=== PATIENT | male | born 1955 | race Caucasian/White ===

== ENCOUNTER → 2018-03-24 10:18 | Outpatient (CLI) | payer MEDICARE, OTHER ==
[~2018-03-24 10:18] MED LIST: ASPIRIN81 MG PO; GLUCOPHAGE1000 MG PO; LEVO-T175 MCG PO; LISINOPRIL10 MG PO; PLAVIX75 MG PO; PRAVACHOL20 MG PO; TOUJEO SOL300 UNIT/1 SC
--- NOTE | 2018-03-27 17:10 | ST ---
PATIENT:YAZMIN ONEILL MEDICAL RECORD: [id number] SEX: M LOCATION:[facility] ORDER #: ADMISSION DATE: 03/24/18 AGE OF PATIENT: 63 REFERRING PHYSICIAN: INTERPRETING PHYSICIAN: SYDNEE PAYAN MD DATE OF SERVICE: 03/24/2018 PROCEDURE: Nuclear stress test. INDICATION: Angina, shortness of breath, and hypertension. The patient was exercised on standard Rambo protocol for 5 minutes, terminated due to achievement of maximum target heart rate response with 33 mCi of sestamibi injected at peak stress and 11 mCi used previously for rest images. FINDINGS: Gated SPECT reveals a preserved ejection fraction of 56% with good wall motion, thickening, and brightening throughout all segments. SPECT imaging Cardiolite was used as myocardial perfusion agent. There are definite reversible changes inferiorly. This includes the basal, mid, apical, and inferior segments. The degree of reversibility is mild. The amount of myocardium involved is moderate. OVERALL IMPRESSION: 1. This is an abnormal nuclear stress test with reversible changes inferiorly. 2. Gated SPECT reveals preserved ejection fraction 56%. In this patient with ongoing symptomatology, the current scan does suggest presence of hemodynamically significant coronary artery disease. We will proceed with coronary angiography as followup study. TRANSINT:[id number] Voice Confirmation ID: [id number] DOCUMENT ID: [id number] SYDNEE PAYAN MD at 1710 CC: [id number] DICTATION DATE: 03/25/18 1158 FOOT MITER OPERATOR: 03/26/18 0148 DEP CLI 03/24/18 [place] [id number]
[2018-04-04 09:27] VITALS: BMI 44.6
== END | disposition home or self-care (01) ==
LOC: D.HCCARDIO 10:18
DX: R06.09 Other forms of dyspnea (principal)

== ENCOUNTER 2018-04-02 08:36 | Outpatient (CLI) | payer MEDICARE, OTHER ==
[~2018-04-02] VITALS: Ht 182.9 cm; Wt 149.1 kg
--- NOTE | ~2018-04-02 | HEMODYNAMI ---
PATIENT:YAZMIN ONEILL MEDICAL RECORD: [id number] : 51 LOCATION:[facility] ADMISSION DATE: 04/02/18 Generatedon:04/02/201810:57 Patient name: YAZMIN ONEILL Patient #: [id number] SSN: : Date of study: 04/02/2018 Page: Of Hemodynamic Procedure Report Patient Data Patient Demographics Procedure consent was obtained First Name: YAZMIN Gender: Male Last Name: NINO : 1955 Middle Initial: WADE Age: 63 year(s) Patient #: [id number] Race: Unknown Additional ID: [id number] Contact details [address]: [address] [place] [address] State: [place] City: [place] Zip code: [address] Past Medical History Allergies Allergen Reaction Date Comments Reported Other 04/02/2018 PCN, allergy gemfibrozil,meperidine. Admission Admission Data Admission Date: 04/02/2018 Admission Time: 8:36 Admit Source: Other Height (in.): 72 BSA: 2.62 (m2) Height (cm.): 182.88 BMI: 44.21 (kg/m2) Weight (lbs.): 326 Weight (kg.): 147.87 Lab Results Lab Result Date: 04/02/2018 Lab Result Time: 9:00 Biochemistry Name Units Result Min Max BUN mg/dl 14 --(--*-)-- 7 18 Creatinine mg/dl 1.1 --(--*-)-- 0.6 1.3 CBC Name Units Result Min Max Hematocrit % 45.7 --(-*--)-- 42 54 Hemoglobin g/dl 15.7 --(--*-)-- 13.5 17.5 Procedure Procedure Types Cath Procedure Diagnostic Procedure C [facility] w/Coronaries Sedation Charges Moderate Sedation up to 15 minutes PCI Procedure Coronary Stent Coronary Stent Initial Procedure Description Procedure Date Procedure Date: 04/02/2018 Procedure Start Time: 10:41 Procedure End Time: 10:55 Procedure Staff Name Function Jose Ramon Mcgovern MD Performing Physician Apple Johnson RT Monitor Jt Hawthorne RN Nurse Erik Casas RT Scrub Procedure Data Cath Procedure Fluoroscopy Diagnostic fluoroscopy Total fluoroscopy Time: 3.1 time: 3.1 min min Diagnostic fluoroscopy Total fluoroscopy dose: 751 dose: 751 mGy mGy Contrast Material Contrast Material Type Amount (ml) Isovue 300 75 Entry Location Entry Primary Successful Side Size Upsize Upsize Entry Closure Holley ccessful Closure Location (Fr) 1 (Fr) 2 (Fr) Remarks Device Remarks Radial Right 6 Fr Mechanical Z band artery Short Compression Estimated blood loss: 10 ml Diagnostic catheters Device Type Used For End Catheter Placement DIAGNOSTIC Compton 110cm 5 Procedure Fr catheter ([id number]) Procedure Complications No complications Procedure Medications Medication Administration Route Dosage 0.9% NaCl I.V. 100 ml/hr Oxygen etCO2 Nasal cannula 2 l/min Heparin Flush Bag added to field 2 bags (1000units/500ml NS) Lidocaine 2% added to field 20 Radial Cocktail added to field 1 syringe (Verapomil 2mg/Nitro 400mcg/Heparin 1500units) Versed I.V. 2 mg Fentanyl I.V. 100 mcg Versed I.V. 1 mg Heparin Bolus I.V. 4000 units Hemodynamics Rest BSA: 2.62 (m2) O2 Consumption: Estimated: 356.32 (ml/min) O2 Consumption indexed : Estimated:136 (ml/min/m) Pre Cath Intra NCS Post Cath Vital Signs Time Heart Resp SPO2 etCO2 NIBP (mmHg) Rhythm Pain Sedation Rate (ipm) (%) (mmHg) Status Level (bpm) 10:25:02 89 18 99 37.7 145/92(121) NSR 0 (11) 10(A) , No pain 10:29:22 93 18 96 39.2 153/84(132) NSR 0 (11) 10(A) , No pain 10:33:44 83 14 98 42.3 145/84(109) NSR 0 (11) 10(A) , No pain 10:38:08 94 18 98 38.5 145/87(120) NSR 0 (11) 10(A) , No pain 10:42:32 96 12 98 37.7 144/87(114) NSR 0 (11) 10(A) , No pain 10:46:45 96 15 94 39.2 129/76(96) NSR 0 (11) 10(A) , No pain 10:51:02 100 18 96 39.2 135/76(100) NSR 0 (11) 10(A) , No pain 10:55:14 95 15 97 37.7 133/78(107) NSR 0 (11) 10(A) , No pain Medications Time Medication Route Dose Verified Delivered Reason Not es Effectiveness by by 10:22:46 0.9% NaCl I.V. 100 Jt Jt Per physician ml/hr Christoph Hawthorne RN RN 10:22:58 Oxygen etCO2 2 l/min Jt Jt for low 02 sats Nasal Christoph Hawthorne cannula RN RN 10:23:07 Heparin Flush added 2 bags Jt Jt used for Bag to Christoph Hawthorne procedure (1000units/500ml field RN RN NS) 10:23:23 Lidocaine 2% added 20ml Jt Jt for local to vial Christoph Hawthorne anesthetic RN RN 10:23:35 Radial Cocktail added 1 Jt Jt used for (Verapomil to syringe Christoph Hawthorne procedure 2mg/Nitro field RN RN 400mcg/Heparin 1500units) 10:38:04 Versed I.V. 2 mg Jt Jt for sedation Christoph Hawthorne RN RN 10:38:12 Fentanyl I.V. 100 mcg Jt Jt for sedation Christoph Hawthorne RN RN 10:41:22 Versed I.V. 1 mg Jt Jt for sedation Christoph Hawthorne RN RN 10:46:57 Heparin Bolus I.V. 4000 Jt Jt for units Christoph Hawthorne anticoagulation RN horse trekking guide Log Time Note 10:06:35 Patient Height : 72 inches 10:06:42 Patient Weight : 326 lbs 10:08:03 Admit Source: Other 10:08:07 Diagnostic Cath status Elective 10:08:09 Time tracking: Regular hours (M-F 7:00 - 5:00) 10:08:13 Plan of Care:Hemodynamics will remain stable., Cardiac rhythm will remain stable., Comfort level will be maintained., Respiratory function will remain adequate., Patient/ family verbilizes understanding of procedure., Procedure tolerated without complication., Recovers from procedure without complications.. 10:08:22 H&P Date Dictated: 03/19/2018 Within 30 days and on chart., H&P Addendum completed by physician on day of procedure. (MUST COMPLETE FOR ALL OUTPATIENTS). 10:10:15 Jt Hawthorne RN sent for patient. Start room use. 10:15:04 Lab Result : BUN 14 mg/dl 10:15:04 Lab Result : Creatinine 1.1 mg/dl 10:15:04 Lab Result : Hematocrit 45.7 % 10:15:04 Lab Result : Hemoglobin 15.7 g/dl 10:15:06 Lab results completed and on chart. 10:15:15 Patient received from Pre/Post Procedure Room to CCL 2 Alert and oriented. Tansferred to table in Supine position. 10:15:16 Warm blankets applied, and coral hugger turned on for patient comfort. 10:15:17 Correct patient and procedure confirmed by team. 10:15:19 Signed procedure consent form obtained from patient. 10:15:20 ECG and BP/O2 sat monitors applied to patient. 10:15:20 Pre-procedure instructions explained to patient. 10:15:21 Pre-op teaching completed and patient verbalized understanding. 10:15:23 Family in waiting room. 10:15:24 Patient NPO since Midnight. 10:15:42 Patient allergic to Other allergyPCN, gemfibrozil,meperidine. 10:15:43 Is the patient allergic to Iodine/contrast media? No. 10:15:44 Is patient on blood thinner?Yes 10:15:46 ACC The patient was administered the following blood thiners within the last 24 hours: ACCPlavix 10:15:47 Patient diabetic? Yes. 10:15:48 If diabetic: On Metformin? Yes 10:15:51 If on Metformin: Last Dose? 03/31/2018 10:15:54 Previous problem with sedation/anesthesia? No ? 10:15:54 Snore? Yes 10:15:55 Sleep apnea? Yes 10:15:56 Deviated septum? No 10:15:56 Opens mouth fully? Yes 10:15:57 Sticks out tongue? Yes 10:15:59 Airway obstruction? No ? 10:16:00 Dentures? No ? 10:22:46 0.9% NaCl 100 ml/hr I.V. was administered by Jt Lorigan RN; Per physician; 10::58 Oxygen 2 l/min etCO2 Nasal cannula was administered by Jt Hawthorne RN; for low 02 sats; 10:23:07 Heparin Flush Bag (1000units/500ml NS) 2 bags added to field was administered by Jt Hawthorne RN; used for procedure; 10:23:23 Lidocaine 2% 20ml vial added to field was administered by Jt Hawthorne RN; for local anesthetic; 10:23:35 Radial Cocktail (Verapomil 2mg/Nitro 400mcg/Heparin 1500units) 1 syringe added to field was administered by Jt Hawthorne RN; used for procedure; 10:23:39 Vital chart was started 10:31:47 IV patent on arrival in left forearm with 0.9% NaCl at KVO. 10:31:56 Right Radial & Right Groin area was prepped with chlora-prep and draped in sterile fashion 10:31:57 Alarms reviewed by R. N. 10:31:58 Sharps counted by scrub and verified by R.N. 10:35:30 Physician arrived 10:35:31 --------ALL STOP TIME OUT------ 10:35:33 Final Timeout: patient, procedure, and site verified with staff and physician. All members of the team are in agreement. 10:35:35 Right Radial & Right Groin site verified by team. 10:35:53 Fire Safety Assessment: A--An alcohol-based skin anteseptic being used preoperatively., C--Open oxygen or nitrous oxide is being used., D--An ESU, laser, or fiber-optic light is being used. 10:35:59 Physical assessment completed. ASA score P 2 - A patient with mild systemic disease as per Jose Ramon Mcgovern MD. 10:36:03 Sedation plan: IV Moderate Sedation Medication:Versed, Fentanyl 10:36:08 Use device set Radial Dx or PCI 10:36:16 ACIST Syringe (35648) opened to sterile field. 10:36:16 Medline Cath Pack ([id number]) opened to sterile field. 10:36:17 Bag Decanter (2002) opened to sterile field. 10:36:18 DIAGNOSTIC WIRE .035 260cm J wire (664752) opened to sterile field. 10:36:18 ACIST Hand Control (53874) opened to sterile field. 10:36:19 ACIST Manifold (30511) opened to sterile field. 10:36:19 Tegaderm 4 x 4 (1626W) opened to sterile field. 10:36:21 MBrace Wrist Support (140501436) opened to sterile field. 10:36:24 SHEATH 6FR Slender (07-3807) opened to sterile field. 10:36:32 Zero performed for pressure channel P1 10:36:45 Zero performed for pressure channel P1 10:37:40 Zero performed for pressure channel P1 10:38:04 Versed 2 mg I.V. was administered by Jt Hawthorne RN; for sedation; 10:38:12 Fentanyl 100 mcg I.V. was administered by Jt Hawthorne RN; for sedation; 10:38:13 Procedure started. 10:38:13 Full Disclosure recording started 10:41:22 Versed 1 mg I.V. was administered by Jt Hawthorne RN; for sedation; 10:41:50 Local anesthetic to right radial artery with Lidocaine 2% by Jose Ramon Mcgovern MD.INITIAL ACCESS ONLY 10:41:59 A 6 Fr Short sheath was inserted into the Right Radial artery 10:42:43 A DIAGNOSTIC Compton 110cm 5 Fr catheter ([id number]) was advanced over the wire and used for Procedure. 10:42:55 LV angiography performed. 10:43:19 LV gram done using MONSON 10:43:52 EF : 60 % 10:44:06 RCA angiography performed. 10:44:09 LCA angiography performed. 10:44:19 Catheter removed. 10:45:20 Proceeding to intervention. 10:46:57 Heparin Bolus 4000 units I.V. was administered by Jt Hawthorne RN; for anticoagulation; 10:47:10 6 Fr AR2SH guide catheter was inserted over the wire 10:48:05 choice pt ex wire advanced. 10:48:30 GUIDE 6FR AR 2.0 SH catheter ([id number]) opened to sterile field. 10:48:32 CHOICE PT Extra Support 182cm wire ([id number]) opened to sterile field. 10:48:33 INFLATOR Merit BasixCompak (XX4855) opened to sterile field. 10:49:26 Place stent Inflation Number: 1 A ANUPAM RX 2.75 x 38 stent ([id number]) was prepped and advanced across the Mid RCA. The stent was deployed at 17 GRIFFIN for 0:06 (min:sec). 10:49:58 Wire removed. 10:50:00 Guide catheter removed. 10:50:33 Sheath removed intact; hemostasis achieved with Mechanical Compression to the Right Radial artery. 10:50:36 Procedure ended.(Physican Out) 10:51:04 Fluoroscopy time 03.10 minutes. 10:51:09 Fluoroscopy dose: 751 mGy 10:51:09 Flurop Dose total: 751 10:51:13 Contrast amount:Isovue 300 75ml. 10:51:14 Sharps counted by scrub and verified by R.N. 10:51:18 TR band inflated with 12cc of air. 10:51:19 Insertion/operative site no bleeding no hematoma. 10:51:22 Post Procedure Pulses reassessed and unchanged 10:51:25 Post-procedure physical assessment completed. ASA score P 2 - A patient with mild systemic disease as per Jose Ramon Mcgovern MD. 10:51:31 Post procedure rhythm: unchanged. 10:51:34 Estimated blood loss: 10 ml 10:52:02 Post procedure instruction explained to patient.Patient verbalizes understanding. 10:52:03 Patient needs reinforcement of post procedure teaching. 10:52:52 Procedure type changed to Cath procedure, Diagnostic procedure, LHC, LHC w/Coronaries, Sedation Charges, Moderate Sedation up to 15 minutes, PCI procedure, Coronary Stent, Coronary Stent Initial 10:52:54 Procedure and supply charges have been captured, reviewed, submitted and are correct. 10:54:24 ZEPHYR REGULAR TR BAND NO COST(566656) opened to sterile field. 10:55:12 Procedure Complication : No complications 10:55:15 Vital chart was stopped 10:55:16 See physician's report for complete and final results. 10:55:18 Report given to Pre/Post Procedure Room. 10:55:29 Patient transfered to Pre/Post Procedure Room with Stretcher. 10:55:34 Procedure ended. 10:55:34 Full Disclosure recording stopped 10:55:37 End room use (Document Last) 10:56:20 ACC-PCI Only Patient was given prescriptions, or instructed by Jose Ramon Mcgovern MD to start/continue the following medications upon discharge: Plavix Intervention Summary Intervention Notes Time ActionType Lesion and Equipment Used Action# Pressure Duration Attributes 10:49:26 Place stent Mid RCA ANUPAM RX 2.75 x 1 17 00:06 38 stent ([id number]) Device Usage Item Name Manufacture Quantity Catalog Number Hospital Part Current M inimal Lot# / Charge Number Stock Stock Serial# Code ACIST Syringe Acist 1 82760 958161 637165 887297 2 0 (46335) Medical Systems Inc Medline Cath Medline 1 [id number] 895224 46981 730782 5 Pack ([id number]) Bag Decanter Microtek 1 2001S 202429 96244 128294 5 () Medical Inc. DIAGNOSTIC St Eric 1 117370 515189 021691 893272 3 0 WIRE .035 260cm J wire (708961) ACIST Hand Acist 1 37243 669234 589912 447513 5 Control Medical (52270) Systems Inc ACIST Manifold Acist 1 45289 467585 951710 699792 5 (44206) Medical Systems Inc Tegaderm 4 x 4 3M 1 1626W 159862 181303 015392 5 (1626W) MBrace Wrist Advanced 1 140-0250-00 050777 26075 224792 5 Support Vascular ([id number]) Dynamics SHEATH 6FR Terumo 1 [id number] 315886 854895 058003 5 Slender (80-1060) DIAGNOSTIC Terumo 1 40-3023 982780 222854 461107 5 Compton 110cm 5 Fr catheter (762346) GUIDE 6FR AR Medtronic 1 [id number] 679914 51069 322244 1 2.0 SH catheter ([id number]) CHOICE PT Pratt 1 [id number] 916014 291909 561068 5 Extra Support Scientific 182cm wire ([id number]) INFLATOR Merit Merit 1 EV2034 788424 596509 934408 1 5 Unravel Data Systems (IF5110) ANUPAM RX 2.75 x Medtronic 1 [id number] 910296 5909194 539589 5 [id number] 38 stent ([id number]) ZEPHYR REGULAR Cardinal 1 960878 578721 814695 5 TR BAND NO Health COST(457347) Signature Audit [place] Stage Time Signature Unsigned Intra-Procedure 04/02/2018 Apple Johnson 10:56:59 AM RT(R) Signatures Monitor : Apple Johnson Signature : RT Date : Time : [place] [id number] [place] [place] [address]
[2018-04-02] MEDS ORDERED: PLAVIX75 MG PO ×2 (08:54→11:29)
[2018-04-02] MEDS ORDERED: LEVO-T175 MCG PO (08:54)
[2018-04-02] MEDS ORDERED: LISINOPRIL10 MG PO (08:55)
[2018-04-02] MEDS ORDERED: GLUCOPHAGE1000 MG PO (08:55)
[2018-04-02] MEDS ORDERED: PRAVACHOL20 MG PO (08:56)
[2018-04-02] MEDS ORDERED: TOUJEO SOL300 UNIT/1 SC (08:58)
[2018-04-02] MEDS ORDERED: ASPIRIN81 MG PO (08:58)
[2018-04-02 09:17] VITALS: BP 117/74; Ht 182.9 cm; Wt 149.1 kg
[2018-04-02 09:17] LABS: BASOPHILS 0.8 % (0-2); EOSINOPHILS 5.7 % (0-7); HEMATOCRIT 45.7 % (42.0-54.0); HEMOGLOBIN 15.7 g/dL (13.5-17.5); IMMATURE GRANULOCYTES 0.3 % (0-5); LYMPHOCYTES 31.1 % (15-50); MCH 29.7 pg (26.0-34.0); MCHC 34.4 g/dL (31.0-37.0); MCV 86.4 fL (80.0-100.0); MEAN PLATELET VOLUME 9.9 fL (7.4-10.4); MONOCYTES 7.1 % (2-11); PLATELET COUNT 228 10x3/uL (130-400); RBC 5.29 10x6/uL (4.20-6.10); RDW 13.3 % (11.5-14.5); WBC 7.9 10x3/uL (4.8-10.8)
[2018-04-02 09:28] LABS: ANION GAP 12.5 mmol/L (8-16); CALCIUM 8.5 mg/dL (8.5-10.1); CARBON DIOXIDE 26.5 mmol/L (21.0-32.0); CREATININE - SERUM 1.1 mg/dL (0.6-1.3)
--- NOTE | 2018-04-02 11:00 | NUR ---
PT RECEIVED VIA STRETCHER FROM STATISTICAL FINANCIAL ANALYST FOR RECOVERY, PT AWAKE DENIES PAIN OR NEEDS. TR BAND TO R WRIST W IMMOBILIZER ON, DRESSING CDI NO BLEEDING OR SWELLING NOTED. CAP REFILL BRISK. HR NSR AT 88, BP 111/58, O2 SAT 95 ON 2L/NC. CALL LIGHT IN REACH. AT BEDSIDE
--- NOTE | 2018-04-02 11:20 | OP ---
PATIENT NAME: YAZMIN ONEILL MEDICAL RECORD: [id number] :51 LOCATION:[facility] ADMISSION DATE: SURGEON: SYDNEE PAYAN MD DATE OF OPERATION: 04/02/2018 PROCEDURES: 1. PTCA and stent of RCA. 2. Left heart catheterization. 3. Selective coronary angiography. 4. Left ventriculogram. INDICATIONS: Angina and coronary artery disease. PROCEDURE IN DETAIL: After informed consent was obtained and after a detailed explanation of the risks, benefits as well as alternative therapies, the patient elected to proceed with angiogram and angioplasty. The right radial area was prepped and draped in normal sterile fashion. Right radial artery was cannulated via modified Seldinger technique with placement of 6-[place]izen [place] sheath. All catheters exchanged through this sheath. FINDINGS: The left ventriculogram was performed in standard 30-degree MONSON view, reveals good cardiac wall motion throughout all segments. Overall ejection fraction estimated 60%. SELECTIVE CORONARY ANGIOGRAPHY: 1. Left main is with no significant angiographic disease. 2. Left anterior descending has 80% stenosis proximally. 3. Left circumflex has 70% to 80% stenosis in the mid distal vessel. 4. Right coronary has long area of 70% to 80% stenosis throughout the mid vessel. PTCA AND STENT OF THE RCA: The stent used was a 2.75 x 38-mm Og. Result was 0% residual stenosis. OVERALL IMPRESSION: Successful PTCA and stent of the RCA going from 80% initial stenosis to 0% residual. Plan for PTCA and stent of the LAD and circumflex in the near future. TRANSINT:[id number] Voice Confirmation ID: [id number] DOCUMENT ID: [id number] SYDNEE PAYAN MD at 1120 CC: [id number] DICTATION DATE: 04/02/18 1053 INSPECTOR PLATING: 04/02/18 1105 [facility] [address] [place] [address]
--- NOTE | 2018-04-02 11:35 | NUR ---
PT RESTING COMFORTABLY, DENIES PAIN OR NEEDS. TR BAND IN PLACE NO BLEEDING OR SWELLING NOTED. CALL LIGHT IN REACH
--- NOTE | 2018-04-02 11:58 | NUR ---
TR BAND IN PLACE, DRESSING REMAINS CDI NO BLEEDING OR SWELLING NOTED. CALL LIGHT IN REACH. DENIES NEEDS
--- NOTE | 2018-04-02 12:00 | NUR ---
PT SITTING UP READING IPAD, DENIES PAIN OR NEEDS. TR BAND AND IMMOBILIZER IN PLACE, NO BLEEDING OR SWELLING NOTED. CALL LIGHT IN REACH, AT BEDSIDE
--- NOTE | 2018-04-02 12:25 | NUR ---
TR BAND IN PLACE, NO BLEEDING OR SWELLING NOTED, DRESSING REMAINS CDI. CALL LIGHT IN REACH. VSS DENIES NEEDS.
--- NOTE | 2018-04-02 13:00 | NUR ---
NO CHANGE IN CONDITION, REMAINS PAIN FREE, HR NSR RATE 82. TR BAND AND IMMOBILIZER IN PLACE, NO BLEEDING OR SWELLING NOTED AROUND SITE. DENIES NEEDS, REMAINS AT BEDSIDE, CALL LIGHT IN REACH
--- NOTE | 2018-04-02 13:30 | NUR ---
PT READING, DENIES PAIN OR NEEDS. PB AND CRACKERS GIVEN. TR BAND AND IMMOBILIZER IN PLACE, NO BLEEDING OR SWELLING NOTED. CALL LIGHT IN REACH
--- NOTE | 2018-04-02 14:06 | NUR ---
4 CC AIR REMOVED FROM TR BAND, NO BLEEDING OR SWELLING NOTED. VSS, DENIES PAIN OR NEEDS.
--- NOTE | 2018-04-02 14:34 | NUR ---
3 ADD'L CC OF AIR REMOVED FROM TR BAND. NO BLEEDING OR SWELLING NOTED, DRESSING REMAINS CDI. DENIES PAIN OR NEEDS.
--- NOTE | 2018-04-02 14:48 | NUR ---
DISCHARGE INSTRUCTIONS REVIEWED W PT AND , BOTH VERBALIZED UNDERSTANDING. INSTRUCTED PT ON INSTRUCTIONS FOR CATH SCHEDULED ON Saturday04/04/18. IV REMOVED W CATH INTACT, MONITORS AND O2 REMOVED. PT UP TO DRESS FOR DISCHARGE
--- NOTE | 2018-04-02 15:02 | NUR ---
TR BAND AND REMAINING AIR REMOVED, 2X2 AND TEGADERM DRESSING APPLIED. NO BLEEDING OR SWELLING NOTED AT OR AROUND SITE. PT DISCHARGED TO PRIVATE VEHICLE VIA WC
== END 2018-04-02 15:00 | disposition home or self-care (01) ==
LOC: D.CATH 08:36
PROVIDERS: Internal Medicine Interventional Cardiology
DX: I25.119 Atherosclerotic heart disease of native coronary artery with unspecified angina pectoris (principal); Z01.812 Encounter for preprocedural laboratory examination
CPT/HCPCS: 93458; C9600

== ENCOUNTER 2018-04-04 08:52 | Outpatient (CLI) | payer MEDICARE, OTHER ==
[~2018-04-04] VITALS: Ht 182.9 cm; Wt 149.1 kg
--- NOTE | ~2018-04-04 | HEMODYNAMI ---
PATIENT:YAZMIN ONEILL MEDICAL RECORD: [id number] : 51 LOCATION:[facility] ADMISSION DATE: 04/04/18 Generatedon:04/04/201813:35 Patient name: YAZMIN ONEILL Patient #: [id number] SSN: : Date of study: 04/04/2018 Page: Of Hemodynamic Procedure Report Patient Data Patient Demographics Procedure consent was obtained First Name: YAZMIN Gender: Male Last Name: NINO : 1955 Middle Initial: WADE Age: 63 year(s) Patient #: [id number] Race: Unknown Additional ID: [id number] Contact details [address]: [address] [place] [address] State: [place] City: [place] Zip code: [address] Past Medical History Allergies Allergen Reaction Date Comments Reported Other 04/02/2018 PCN, allergy gemfibrozil,meperidine. Admission Admission Data Admission Date: 04/04/2018 Admission Time: 8:52 Lab Results Lab Result Date: 04/02/2018 Lab Result Time: 9:00 Biochemistry Name Units Result Min Max BUN mg/dl 14 --(--*-)-- 7 18 Creatinine mg/dl 1.1 --(--*-)-- 0.6 1.3 CBC Name Units Result Min Max Hematocrit % 45.7 --(-*--)-- 42 54 Hemoglobin g/dl 15.7 --(--*-)-- 13.5 17.5 Procedure Procedure Types Cath Procedure PCI Procedure Coronary Stent Coronary Stent Initial x2 Procedure Description Procedure Date Procedure Date: 04/04/2018 Procedure Start Time: 13:22 Procedure End Time: 13:34 Procedure Staff Name Function Jose Ramon Mcgovern MD Performing Physician Tory Cagle RT Monitor Jesenia Guallpa RN Nurse Estrella Landeros RT Scrub Nena Cedillo RT Scrub Ty Leach RT Mortgage Loan Originator Procedure Data Cath Procedure Fluoroscopy Diagnostic fluoroscopy Total fluoroscopy Time: 3 time: 3 min min Diagnostic fluoroscopy Total fluoroscopy dose: 524 dose: 524 mGy mGy Contrast Material Contrast Material Type Amount (ml) Isovue 300 77 Entry Location Entry Primary Successful Side Size Upsize Upsize Entry Closure Holley ccessful Closure Location (Fr) 1 (Fr) 2 (Fr) Remarks Device Remarks Radial Right 6 Fr Mechanical artery Short Compression Estimated blood loss: 10 ml Procedure Complications No complications Procedure Medications Medication Administration Route Dosage 0.9% NaCl I.V. 100 ml/hr Oxygen etCO2 Nasal cannula 2 l/min Lidocaine 2% added to field 20 Heparin Flush Bag added to field 2 bags (1000units/500ml NS) Radial Cocktail added to field 1 syringe (Verapomil 2mg/Nitro 400mcg/Heparin 1500units) Versed I.V. 2 mg Fentanyl I.V. 50 mcg Versed I.V. 2 mg Fentanyl I.V. 50 mcg Versed I.V. 1 mg Heparin Bolus I.V. 4000 units Hemodynamics Rest HGB: 15.7 (g/dl) Heart Rate: 81 (bpm) Snapshots Pre Cath Intra NCS Post Cath Vital Signs Time Heart Resp SPO2 etCO2 NIBP (mmHg) Rhythm Pain Sedation Rate (ipm) (%) (mmHg) Status Level (bpm) 12:51:07 90 12 100 33.4 132/69(102) NSR 0 (11) 10(A) , No pain 12:55:52 79 15 100 31.9 112/66(83) NSR 0 (11) 10(A) , No pain 13:00:26 86 16 98 37.9 112/62(82) NSR 0 (11) 10(A) , No pain 13:05:01 80 11 97 37.1 109/59(93) NSR 0 (11) 10(A) , No pain 13:09:33 84 10 97 36.4 109/59(86) NSR 0 (11) 10(A) , No pain 13:14:05 88 15 98 36.4 115/62(90) NSR 0 (11) 10(A) , No pain 13:18:38 81 11 98 34.9 111/67(87) NSR 0 (11) 10(A) , No pain 13:23:10 91 13 97 37.8 105/65(91) NSR 0 (11) 9(A) , No pain 13:27:41 91 13 98 34.1 100/59(86) NSR 0 (11) 10(A) , No pain 13:32:09 91 18 97 36.4 98/56(80) NSR 0 (11) 10(A) , No pain Medications Time Medication Route Dose Verified Delivered Reason Not es Effectiveness by by 12:49:29 0.9% NaCl I.V. 100 Jose Ramon Jesenia used for ml/hr Froilan Guallpa vocational childcare teacher 12:49:38 Oxygen etCO2 2 l/min Jose Ramon Jesenia used for Nasal Froilan Guallpa procedure cannula RN 12:49:45 Lidocaine 2% added 20ml Jose Ramon Jose Ramon for local to vial Froilan Mcgovern MD anesthetic field 12:49:49 Heparin Flush added 2 bags Jose Ramon Jose Ramon used for Bag to Froilan Mcgovern MD procedure (1000units/500ml field NS) 12:49:56 Radial Cocktail added 1 Jose Ramon Jose Ramon used for (Verapomil to syringe Froilan Mcgovern MD procedure 2mg/Nitro field 400mcg/Heparin 1500units) 13:21:00 Versed I.V. 2 mg Jose Ramon Jesenia for sedation Froilan Guallpa RN 13:21:06 Fentanyl I.V. 50 mcg Jose Ramon Jesenia for sedation Froilan Guallpa RN 13:26:26 Heparin Bolus I.V. 4000 Jose Ramon Jesenia for estevan ified units Froilan Guallpa anticoagulation with Dr. ZAIRA Mcgovern 13:26:37 Versed I.V. 2 mg Jose Ramon Jesenia for sedation Froilan Guallpa RN 13:26:46 Fentanyl I.V. 50 mcg Jose Ramon Jesenia for sedation Froilan Guallpa RN 13:30:12 Versed I.V. 1 mg Jose Ramon Jesenia for sedation Froilan Guallpa etl software engineer Log Time Note 12:30:01 Ty Leach RT(R) sent for patient. Start room use. 12:43:08 Time tracking: Regular hours (M-F 7:00 - 5:00) 12:43:11 Plan of Care:Hemodynamics will remain stable., Cardiac rhythm will remain stable., Comfort level will be maintained., Respiratory function will remain adequate., Patient/ family verbilizes understanding of procedure., Procedure tolerated without complication., Recovers from procedure without complications.. 12:43:17 Patient received from Pre/Post Procedure Room to CCL 1 Alert and oriented. Tansferred to table in Supine position. 12:43:18 Warm blankets applied, and coral hugger turned on for patient comfort. 12:43:19 Correct patient and procedure confirmed by team. 12:43:20 Signed procedure consent form obtained from patient. 12:43:21 ECG and BP/O2 sat monitors applied to patient. 12:43:22 Full Disclosure recording started 12:49:21 Vital chart was started 12:49:29 0.9% NaCl 100 ml/hr I.V. was administered by Jesenia Guallpa RN; used for procedure; 12:49:30 Rhythm: sinus rhythm 12:49:38 Oxygen 2 l/min etCO2 Nasal cannula was administered by Jesenia Guallpa RN; used for procedure; 12:49:45 Lidocaine 2% 20ml vial added to field was administered by Jose Ramon Mcgovern MD; for local anesthetic; 12:49:49 Heparin Flush Bag (1000units/500ml NS) 2 bags added to field was administered by Jose Ramon Mcgovern MD; used for procedure; 12:49:56 Radial Cocktail (Verapomil 2mg/Nitro 400mcg/Heparin 1500units) 1 syringe added to field was administered by Jose Ramon Mcgovern MD; used for procedure; 12:50:08 H&P Date Dictated: 04/04/2018 Within 30 days and on chart.. 12:50:09 Pre-procedure instructions explained to patient. 12:50:10 Pre-op teaching completed and patient verbalized understanding. 12:50:12 Family in patients room. 12:50:23 Patient NPO since Midnight. 12:50:36 Is the patient allergic to Iodine/contrast media? No. 12:50:37 Is patient on blood thinner?Yes 12:50:40 ACC The patient was administered the following blood thiners within the last 24 hours: ACCPlavix 12:51:09 Patient diabetic? Yes. 12:51:10 If diabetic: On Metformin? Yes 12:51:53 If on Metformin: Last Dose? 03/31/2018 12:51:57 Previous problem with sedation/anesthesia? No ? 12:51:57 Snore? Yes 12:51:58 Sleep apnea? Yes 12:51:59 Deviated septum? No 12:52:00 Opens mouth fully? Yes 12:52:01 Sticks out tongue? Yes 12:52:03 Airway obstruction? No ? 12:52:05 Dentures? No ? 12:52:08 Pre procedure: right dorsailis pedis pulse 2+ Normal; easily identifiable; not easily obliterated 12:52:11 Modified Naresh's test Ulnar < 7 seconds 12:52:12 Patient pain scale 0/10 ?. 12:52:16 IV patent on arrival in left forearm with 0.9% NaCl at [facility]. 12:52:20 Lab results completed and on chart. 12:52:31 Right Radial & Right Groin area was prepped with chlora-prep and draped in sterile fashion 12:52:32 Alarms reviewed by R. N. 12:52:33 Sharps counted by scrub and verified by R.N. 12:52:36 Use device set Radial Dx or PCI 12:52:37 ACIST Syringe (45650) opened to sterile field. 12:52:38 Medline Cath Pack ([id number]) opened to sterile field. 12:52:38 Bag Decanter (2002S) opened to sterile field. 12:52:38 DIAGNOSTIC WIRE .035 260cm J wire (661739) opened to sterile field. 12:52:39 ACIST Hand Control (40209) opened to sterile field. 12:52:39 ACIST Manifold (60903) opened to sterile field. 12:52:40 Tegaderm 4 x 4 (1626W) opened to sterile field. 12:52:40 MBrace Wrist Support ([id number]) opened to sterile field. 12:52:42 SHEATH 6FR Slender (801060) opened to sterile field. 12:55:58 Baseline sample Acquired. 13:08:12 Zero performed for pressure channel P1 13:18:33 Final Timeout: patient, procedure, and site verified with staff and physician. All members of the team are in agreement. 13:18:37 Right Radial site verified by team. 13:18:41 Fire Safety Assessment: A--An alcohol-based skin anteseptic being used preoperatively., C--Open oxygen or nitrous oxide is being used., D--An ESU, laser, or fiber-optic light is being used. 13:18:44 Physical assessment completed. ASA score P 2 - A patient with mild systemic disease as per Jose Ramon Mcgovern MD. 13:18:47 Sedation plan: IV Moderate Sedation Medication:Versed, Fentanyl 13:21:00 Versed 2 mg I.V. was administered by Jesenia Guallpa RN; for sedation; 13:21:06 Fentanyl 50 mcg I.V. was administered by Jesenia Guallpa RN; for sedation; 13::46 Procedure started. 13::50 Local anesthetic to right radial artery with Lidocaine 2% by Jose Ramon Mcgovern MD.INITIAL ACCESS ONLY 13::58 A 6 Fr Short sheath was inserted into the Right Radial artery 13:24:20 Use device set EDMAR PCI 13:24:26 INFLATOR Merit BasixCompak (BM0075) opened to sterile field. 13:24:29 CHOICE PT Extra Support 182cm wire ([id number]) opened to sterile field. 13:24:31 GUIDE 6FR XBLAD 4.0 catheter ([id number]) opened to sterile field. 13:24:52 6 Fr XBLAD 4.0 guide catheter was inserted over the wire 13::26 Heparin Bolus 4000 units I.V. was administered by Jesenia Guallpa RN; for anticoagulation; verified with Dr. Mcgovern 13:26:37 Versed 2 mg I.V. was administered by Jesenia Guallpa RN; for sedation; ::46 Fentanyl 50 mcg I.V. was administered by Jesenia Guallpa RN; for sedation; 13:27:15 CHOICE PT ES wire advanced. 13:28:49 Place stent Inflation Number: 1 A ANUPAM RX 3.0 x 22 stent ([id number]) was prepped and advanced across the Mid LAD. The stent was deployed at 17 GRIFFIN for 0:03 (min:sec). 13:29:15 Stent catheter was removed intact over wire. 13:29:24 Wire redirected to CIRC. 13:30:12 Versed 1 mg I.V. was administered by Jesenia Guallpa RN; for sedation; 13:30:53 Place stent Inflation Number: 1 A ANUPAM RX 3.5 x 15 stent ([id number]) was prepped and advanced across the Mid CX. The stent was deployed at 11 GRIFFIN for 0:13 (min:sec). 13:31:07 Stent catheter was removed intact over wire. 13:31:07 Wire removed. 13:31:08 Guide catheter removed. 13:31:16 Sheath removed intact; hemostasis achieved with Mechanical Compression to the Right Radial artery. 13:31:18 Procedure ended.(Physican Out) 13:31:28 Fluoroscopy time 03.00 minutes. 13:31:31 Flurop Dose total: 524 13::31 Fluoroscopy dose: 524 mGy 13:31:52 Contrast amount:Isovue 300 77ml. 13:31:53 Sharps counted by scrub and verified by R.N. 13:31:56 TR band inflated with 12cc of air. 13:31:57 Insertion/operative site no bleeding no hematoma. 13:32:09 Post right radial artery:stable, clean and dry 13:32:11 Post Procedure Pulses reassessed and unchanged 13:32:17 Post-procedure physical assessment completed. ASA score P 2 - A patient with mild systemic disease as per Jose Ramon Mcgovern MD. 13:32:19 Post procedure rhythm: unchanged. 13:32:23 Estimated blood loss: 10 ml 13:32:25 Post procedure instruction explained to patient.Patient verbalizes understanding. 13:32:25 Patient needs reinforcement of post procedure teaching. 13:32:35 Procedure Complication : No complications 13:32:37 See physician's report for complete and final results. 13:33:12 Procedure type changed to Cath procedure, PCI procedure, Coronary Stent, Coronary Stent Initial x2 13:33:21 TR BAND Large ([id number]) opened to sterile field. 13:33:31 Procedure and supply charges have been captured, reviewed, submitted and are correct. 13:34:44 Vital chart was stopped 13:34:47 Report given to Pre/Post Procedure Room. 13:34:50 Patient transfered to Pre/Post Procedure Room with Stretcher. 13:34:58 Procedure ended. 13:34:58 Full Disclosure recording stopped 13:35:01 End room use (Document Last) Intervention Summary Intervention Notes Time ActionType Lesion and Equipment Used Action# Pressure Duration Attributes 13:28:49 Place stent Mid LAD ANUPAM RX 3.0 x 1 17 00:03 22 stent ([id number]) 13:30:53 Place stent Mid CX ANUPAM RX 3.5 x 1 11 00:13 15 stent ([id number]) Device Usage Item Name Manufacture Quantity Catalog Number Hospital Part Current M inimal Lot# / Charge Number Stock Stock Serial# Code ACIST Syringe Acist 1 91052 452350 492274 411451 2 0 (60017) Medical Systems Inc Medline Cath Medline 1 [id number] 315202 33414 497361 5 Pack ([id number]) Bag Decanter Microtek 1 2001S 598070 22975 788098 5 (2001S) Medical Inc. DIAGNOSTIC St Eric 1 459465 222315 231941 305891 3 0 WIRE .035 260cm J wire (170503) ACIST Hand Acist 1 95577 755462 956853 222232 5 Control Medical (16228) Systems Inc ACIST Manifold Acist 1 20230 909250 648191 046397 5 (35506) Medical Systems Inc Tegaderm 4 x 4 3M 1 1626W 269974 672044 083696 5 (1626W) MBrace Wrist Advanced 1 140-0250-00 488675 55023 285643 5 Support Vascular (374032102) Dynamics SHEATH 6FR Terumo 1 [id number] 243120 071157 588521 5 Slender (80-1060) INFLATOR Merit Merit 1 VP6652 968873 712288 501794 1 5 Droidhen (JD1043) CHOICE PT [place] 1 [id number] 062950 823832 077890 5 Extra Support Scientific 182cm wire (4068048M5) GUIDE 6FR Cardinal 1 [id number] 437382 233783 607813 3 XBLAD 4.0 Health catheter (09621550) ANUPAM RX 3.0 x Medtronic 1 [id number] 584889 6820174 428189 5 [id number] 22 stent ([id number]) ANUPAM RX 3.5 x Medtronic 1 [id number] 124359 4028099 322466 5 [id number] 15 stent ([id number]) TR BAND Large Terumo 1 [id number] 246627 186719 996329 4 0 ([id number]) Signature Audit [place] Stage Time Signature Unsigned Intra-Procedure 04/04/2018 Tory 1:35:16 PM Counts RT(R) Signatures Monitor : Tory Signature : Counts RT Date : Time : [address] [place] [place] [address]
[2018-04-04 09:27] VITALS: BP 118/73; Ht 182.9 cm; Wt 149.1 kg
[2018-04-04 09:41] LABS: BASOPHILS 0.7 % (0-2); EOSINOPHILS 5.1 % (0-7); HEMOGLOBIN 16.2 g/dL (13.5-17.5); IMMATURE GRANULOCYTES 0.3 % (0-5); LYMPHOCYTES 30.1 % (15-50); MCH 29.5 pg (26.0-34.0); MCHC 34.5 g/dL (31.0-37.0); MCV 85.6 fL (80.0-100.0); MEAN PLATELET VOLUME 9.8 fL (7.4-10.4); MONOCYTES 6.2 % (2-11); NEUTROPHILS 57.6 % (40-80); PLATELET COUNT 220 10x3/uL (130-400); RBC 5.49 10x6/uL (4.20-6.10); RDW 13.3 % (11.5-14.5); WBC 6.8 10x3/uL (4.8-10.8)
[2018-04-04 09:54] LABS: CALC OSMOLALITY 278 mosm/kg (275-300); CALCIUM 8.6 mg/dL (8.5-10.1); CARBON DIOXIDE 25.7 mmol/L (21.0-32.0); CHLORIDE - SERUM 100 mmol/L (98-107); GLUCOSE 218 mg/dL (74-106); SODIUM 136 mmol/L (136-145); UREA NITROGEN 13 mg/dL (7-18); eGFR NON AFRICAN AMERICAN 80 mL/min (90-120)
--- NOTE | 2018-04-04 14:04 | NUR ---
AWAKE AND ORIENTED. DENIES PAIN. VSS. ON RA. RIGHT TRB. C/D/I. NO BLEEDING NO HEMATOMA. 2+RADIAL PULSE. DENIES NUMBNESS OR TINGLING. IV PATENT TO RIGHT ARM
--- NOTE | 2018-04-04 14:47 | NUR ---
VSS. DENIES PAIN. AAO X4. RIGHT TRB C/D/I. NO BLEEDING. NO HEMATOMA. 2+ RADIAL PULSE.
--- NOTE | 2018-04-04 15:01 | NUR ---
VSS. DENIES CP. RIGHT TRB C/D/I. 2+ RADIAL PULSE. SKIN PINK AND WARM. NO NUMBNESS OR TINGLING. TOLERATING EATING A SANDWICH. NO N/V. FAMILY AT BS
--- NOTE | 2018-04-04 15:33 | NUR ---
RESTING QUIETLY. DENIES PAIN. AT BS. VSS. HR 80, MAGDALENO 122/62. RIGHT TRB C/D/I. 2+ RADIAL PULSE.
--- NOTE | 2018-04-04 16:05 | NUR ---
VSS. DENIES CP. RIGHT TRB. C/D/I. NO BLEEDING. NO HEMATOMA.
--- NOTE | 2018-04-04 16:24 | NUR ---
VSS. DENIES PAIN. 5CC AIR REMOVED FROM TRB. NO BLEEDING. LEFT ARM PIV REMOVED.
--- NOTE | 2018-04-04 16:45 | NUR ---
3 CC AIR REMOVED FROM TRB. NO BLEEDING. VSS.
--- NOTE | 2018-04-04 17:00 | NUR ---
AIR REMOVED FROM TRB. NO BLEEDING. DRESSING PLACED. DISCHARGE INSTRUCTIONS REVIEWED WITH PT AND SPOUSE
--- NOTE | 2018-04-04 17:10 | NUR ---
PT VOIDED. DISCHARGED IN HOME
--- NOTE | 2018-04-07 11:45 | HP ---
PATIENT: YAZMIN ONEILL MEDICAL RECORD: [id number] ACCOUNT: [id number] LOCATION:[facility] : 51 ADMISSION DATE: 04/04/18 PCP: NATASHA DUMONT MD HISTORY AND PHYSICAL EXAMINATION DIAGNOSES: 1. Angina. 2. Hypertension. 3. Diabetes. 4. Hyperlipidemia. HISTORY: This is a gentleman who presents with anginal symptomatology. He has a strong family history of coronary artery disease as well as smoking history. PHYSICAL EXAMINATION: GENERAL APPEARANCE: Well-nourished, well-developed, appears stated age. Level of distress, comfortable. PSYCHIATRIC: Mental status, alert, normal affect. Orientation, oriented to time, place and person. EYES: Lids and conjunctiva, noninjected. No discharge, no pallor. ENT: Lips, teeth, gums, normal dentition. Oropharynx, no cyanosis, no pallor. NECK: Carotid arteries, bilateral normal upstroke, no bruits, no thrills. JUGULAR VEINS: No jugular venous pressure or distention. CERVICAL LYMPH NODES: Nontender, nonenlarged. THYROID: Not enlarged. Nontender. No nodules. LUNGS: Respiratory effort, unlabored. CHEST: Normal curvature. No thoracic deformity. No chest wall tenderness. Percussion, resonant. Auscultation, clear. No wheezes, no rales, no rhonchi. CARDIOVASCULAR: Precordial exam, nondisplaced. No heaves or pericardial thrills. Rate and rhythm, regular. Heart sounds, normal S1, normal S2. No S3, no gallop, no rub. Systolic murmur, not heard. Diastolic murmur, not heard. EXTREMITIES: No cyanosis, no edema. Peripheral pulses, full and equal in all extremities, except as noted. No bruits appreciated. ABDOMEN: Soft, nondistended. Normal aorta. No bruit. Nontender. No masses. Liver, nontender, no hepatomegaly. Spleen, nontender, no splenomegaly. MUSCULOSKELETAL: No joint tenderness. No joint swelling. No erythema. NEUROLOGICAL: Normal gait, normal strength, normal tone. SKIN: Warm and dry. OVERALL IMPRESSION: Increasing angina with multiple cardiac risk factors. We will proceed with coronary angiography. Further care depends upon findings of the angiography. TRANSINT:[id number] Voice Confirmation ID: [id number] DOCUMENT ID: [id number] HISTORY AND PHYSICAL [id number] YAZMIN ONEILL, SYDNEE MOLINA at 1145 CC: [id number] DICTATION DATE: 04/03/18 1219 MODEL BUILDER: 04/03/18 1251 DEP CLI 04/04/18 [place] [id number] [place] [address]
--- NOTE | 2018-04-07 11:46 | OP ---
PATIENT NAME: YAZMIN ONEILL MEDICAL RECORD: [id number] :51 LOCATION:D.CAT ADMISSION DATE: SURGEON: SYDNEE PAYAN MD DATE OF OPERATION: 04/04/2018 PROCEDURES: 1. PTCA and stent, LAD. 2. PTCA and stent, left circumflex. 3. Selective coronary angiography. INDICATION: Angina and coronary artery disease. PROCEDURE IN DETAIL: After informed consent was obtained with detailed description of risks and benefits as well as alternative therapies, the patient elected to proceed with angiogram and angioplasty. The right radial area was prepped and draped in normal sterile fashion. Right radial artery was cannulated via modified Seldinger technique with placement of 6-Ghanaian sheath. All catheters were exchanged through this sheath. FINDINGS: The left anterior descending has 80% stenosis proximally. This was addressed with a 3.0 x 22 mm Og. Result was 0% residual stenosis. The left circumflex has 80% stenosis in mid vessel. This was addressed with a 3.5 x 15 mm Og. Result was 0% residual stenosis. OVERALL IMPRESSION: Successful PTCA and stent of LAD and circumflex, both going from 80% initial stenoses to 0% residual. TRANSINT:[id number] Voice Confirmation ID: [id number] DOCUMENT ID: [id number] SYDNEE PAYAN MD at 1146 CC: [id number] DICTATION DATE: 04/04/18 1335 LAND ACQUISITION SPECIALIST: 04/04/18 2246 DEP CLI 04/04/18 [place] [id number]
== END 2018-04-04 17:10 ==
LOC: D.CATH 08:52
PROVIDERS: Internal Medicine Interventional Cardiology
DX: I25.119 Atherosclerotic heart disease of native coronary artery with unspecified angina pectoris (principal); Z01.812 Encounter for preprocedural laboratory examination
CPT/HCPCS: C9600 ×2

== ENCOUNTER → 2020-08-16 17:19 | Outpatient (CLI) | payer MEDICARE, OTHER ==
[2018-04-04 09:27] VITALS: BMI 44.6
[~2020-08-16 17:19] MED LIST changes: +HYDROCODON-ACE1 EA10 PO; -PRAVACHOL20 MG PO; +PRAVASTATIN SOD10 MG PO
[2020-08-16 18:14] LABS: CREATININE - SERUM 1.1 mg/dL (0.6-1.3)
== END | disposition home or self-care (01) ==
LOC: D.LAB 17:19
PROVIDERS: ATTEND Family Medicine
DX: R10.9 Unspecified abdominal pain (principal); E11.9 Type 2 diabetes mellitus without complications

== ENCOUNTER 2020-08-16 20:35 | Inpatient (IN) | payer MEDICARE, OTHER ==
[~2020-08-16] VITALS: Ht 182.9 cm; Wt 144.5 kg
--- NOTE | ~2020-08-16 | OP ---
PATIENT NAME: YAZMIN ONEILL MEDICAL RECORD: [id number] :51 LOCATION:D.MS [facility]00 ADMISSION DATE:08/16/20 SURGEON: KEVAN ESQUIVEL MD DATE OF OPERATION: 08/17/2020 PREOPERATIVE DIAGNOSES: 1. Acute appendicitis. 2. Coronary artery disease. POSTOPERATIVE DIAGNOSES: 1. Acute appendicitis. 2. Coronary artery disease. PROCEDURE: Laparoscopic appendectomy. SURGEON: Kevan Esquivel M.D. DESCRIPTION OF PROCEDURE: The patient's abdomen was prepped and draped in sterile fashion. A cutdown was made on the superior aspect of the umbilicus with 0 Vicryls were placed in the fascia bilaterally and the fascia was incised with a 15-blade. I then bluntly entered the peritoneal cavity and placed a 12-mm Mirta port. Under direct visualization, a 5-mm trocar was placed in the left lower quadrant and another was placed in the suprapubic region. The appendix was found extending out from the cecum. It was noted to be grossly inflamed, but no signs of purulence and there was no perforation. The base of the appendix was elevated and a window was made in the mesoappendix. The appendix was transected at its cecal base using a 45 blue load Endo-JOSE stapler. We then came through the mesoappendix with a 45 white load Endo-JOSE stapler. There was no sign of any obvious bleeding at the conclusion of the case. The appendix was placed into an EndoCatch bag. We then irrigated out the right lower quadrant and pelvis. The ports and insufflation were then removed and the appendix was taken out through the umbilicus. The umbilical fascia was closed with interrupted 0 Vicryls times 3. The wounds were irrigated out with normal saline and infused with 10 mL of 0.25% Marcaine with epinephrine. The skin incisions were closed with subcutaneous 5-0 Monocryl and dressed appropriately. COMPLICATIONS: None. CONDITION: Stable. ANESTHESIA: General endotracheal and local. BLOOD LOSS: Minimal. TRANSINT:[id number] Voice Confirmation ID: [id number] DOCUMENT ID: [id number] KEVAN ESQUIVEL MD CC: [id number] DICTATION DATE: 08/17/201934 7TH GRADE TEACHER: 08/17/202049 ADM IN [place] [address] [place] [address]
--- NOTE | 2020-08-16 20:30 | NUR ---
ADMITTED TO ROOM ALERT AND ORIENTIATED, C/O MILDPAIN TO ABD 03/30, STATES ALSO MILD NAUSEA, DENIES NEEDS AT THIS TIME, ORIENTIATED TO ROOM CALL LIGHT IN REACH SEE ASSESSMENT,
[~2020-08-16 20:35] MED LIST changes: -HYDROCODON-ACE1 EA10 PO
[2020-08-16 21:00] VITALS: BP 118/64
[2020-08-16 23:17] LABS: BASOPHILS 0.5 % (0-2); EOSINOPHILS 2.4 % (0-7); HEMATOCRIT 45.3 % (42.0-54.0); HEMOGLOBIN 14.9 g/dL (13.5-17.5); LYMPHOCYTES 20.8 % (15-50); MCHC 32.9 g/dL (31.0-37.0); MCV 85.1 fL (80.0-100.0); MONOCYTES 5.1 % (2-11); NEUTROPHILS 71.2 % (40-80); RBC 5.32 10x6/uL (4.20-6.10); RDW 14.5 % (11.5-14.5); WBC 14.7 10x3/uL (4.8-10.8)
[2020-08-16 23:18] LABS: PLATELET COUNT 285 10x3/uL (130-400)
[2020-08-16 23:25] LABS: APTT 34.2 SECONDS (22.8-39.4); INR 1.14 (0.85-1.17); PROTIME 13.5 SECONDS (11.6-15.0)
[2020-08-16 23:39] LABS: ALBUMIN 3.3 g/dL (3.4-5.0); ALKALINE PHOSPHATASE 71 U/L (30-120); ALT (SGPT) 25 U/L (10-68); AMYLASE - SERUM 95 U/L (25-115); BILIRUBIN - TOTAL 0.66 mg/dL (0.2-1.3); CALCIUM 8.5 mg/dL (8.5-10.1); CARBON DIOXIDE 30.1 mmol/L (21.0-32.0); CHLORIDE - SERUM 102 mmol/L (98-107); CKMB 0.9 U/L (0.0-3.6); CREATINE KINASE 88 UL (21-232); CREATININE - SERUM 1.1 mg/dL (0.6-1.3); LIPASE 315 U/L (73-393); POTASSIUM - SERUM 4.3 mmol/L (3.5-5.1); PROTEIN - SERUM 7.6 g/dL (6.4-8.2); SODIUM 137 mmol/L (136-145); UREA NITROGEN 12 mg/dL (7-18); eGFR NON AFRICAN AMERICAN 71 mL/min (90-120)
[2020-08-16 23:41] LABS: CALC OSMOLALITY 274 mosm/kg (275-300); GLUCOSE 110 mg/dL (74-106); TROPONIN-I < 0.017 ng/mL (0.000-0.060)
[2020-08-17] VITALS (7 sets, daily range): BP systolic 103–134; BP diastolic 56–70; Ht 182.9 cm; Wt 144.5 kg
[2020-08-17 00:28] LABS: BILIRUBIN NEGATIVE (NEGATIVE); KETONE NEGATIVE mg/dL (< 1+); NITRITE NEGATIVE (NEGATIVE); PH 5.5 (5.0-8.0); SQUAMOUS EPITHELIAL <1 HPF (0-4); UROBILINOGEN NORMAL mg/dL (< 2); WHITE CELLS - URINE 12 HPF (0-1)
[2020-08-17 06:49] LABS: BASOPHILS 0.5 % (0-2); HEMATOCRIT 42.7 % (42.0-54.0); HEMOGLOBIN 14.5 g/dL (13.5-17.5); LYMPHOCYTES 20.6 % (15-50); MCH 28.9 pg (26.0-34.0); MCHC 34.1 g/dL (31.0-37.0); MCV 84.9 fL (80.0-100.0); MEAN PLATELET VOLUME 8.2 fL (7.4-10.4); MONOCYTES 5.5 % (2-11); NEUTROPHILS 70.4 % (40-80); PLATELET COUNT 275 10x3/uL (130-400); RBC 5.03 10x6/uL (4.20-6.10); RDW 14.3 % (11.5-14.5); WBC 11.5 10x3/uL (4.8-10.8)
[2020-08-17 06:52] LABS: ALBUMIN 3.2 g/dL (3.4-5.0); BILIRUBIN - TOTAL 0.61 mg/dL (0.2-1.3); CALCIUM 8.5 mg/dL (8.5-10.1); CARBON DIOXIDE 23.8 mmol/L (21.0-32.0); CREATININE - SERUM 1.1 mg/dL (0.6-1.3); MAGNESIUM - SERUM 1.9 mg/dL (1.8-2.4); POTASSIUM - SERUM 3.8 mmol/L (3.5-5.1); PROTEIN - SERUM 7.6 g/dL (6.4-8.2)
--- NOTE | 2020-08-17 11:40 | NUR ---
PATIENT HAD HIBACLENSE BATH AT THIS TIME.
--- NOTE | 2020-08-17 12:00 | NUR ---
PATIENT SIGNED CONSENTS FOR PROCEDURE AND EKG DONE.
--- NOTE | 2020-08-17 13:49 | NUR ---
URINE SENT TO LAB FOR CULTURE ORDERED.
--- NOTE | 2020-08-17 14:53 | NUR ---
PATIENT IN BED WITH IV INTACT. WAITING FOR SURGERY. FAMILY AT BEDSIDE. CALL LIGHT WITHIN REACH.
--- NOTE | 2020-08-17 19:09 | NUR ---
PATIENT STILL WAITING FOR SURGERY AT THIS TIME. IV INTACT. REPORT GIVEN TO NIGHT NURSE. FAMILY AT BEDSIDE. CALL LIGHT WITHIN REACH.
--- NOTE | 2020-08-17 19:59 | NUR ---
REPORT CALLED BY PT RETURNING FROM OR. VSS. PT A/O X4.
[2020-08-18] VITALS: BP 139/71
[2020-08-18 04:00] VITALS: BP 137/68
--- NOTE | 2020-08-18 06:30 | NUR ---
I have reviewed this patient and I concur with the Shift Assessment completed by the Licensed Practical Nurse today this shift.
[2020-08-18 08:06] LABS: BASOPHILS 0.6 % (0-2); EOSINOPHILS 1.3 % (0-7); HEMATOCRIT 41.8 % (42.0-54.0); HEMOGLOBIN 13.9 g/dL (13.5-17.5); MCH 28.5 pg (26.0-34.0); MCHC 33.2 g/dL (31.0-37.0); MEAN PLATELET VOLUME 8.1 fL (7.4-10.4); NEUTROPHILS 74.1 % (40-80); PLATELET COUNT 240 10x3/uL (130-400); RBC 4.87 10x6/uL (4.20-6.10); RDW 14.3 % (11.5-14.5); WBC 10.1 10x3/uL (4.8-10.8)
[2020-08-18 08:12] LABS: ALBUMIN 2.9 g/dL (3.4-5.0); ANION GAP 13.9 mmol/L (8-16); BILIRUBIN - TOTAL 0.62 mg/dL (0.2-1.3); CALCIUM 8.2 mg/dL (8.5-10.1); CARBON DIOXIDE 24.9 mmol/L (21.0-32.0); CREATININE - SERUM 1.1 mg/dL (0.6-1.3); MAGNESIUM - SERUM 2.1 mg/dL (1.8-2.4); POTASSIUM - SERUM 3.8 mmol/L (3.5-5.1)
[2020-08-18] MEDS ORDERED: HYDROCODON-ACE1 EA10 PO (08:16)
[2020-08-18 09:01] VITALS: BP 134/66
--- NOTE | 2020-08-18 13:50 | NUR ---
PATIENT RECIEVED DC INSTRUCTIONS AND PRESCRIPTION. VERBALIZED UNDERSTANDING. IV REMOVED WITH CATH TIP INTACT. HYDRAULIC JACK MECHANIC REMOVED AND TAKEN TO ICU. PATIENT WAITING FOR TRANSPORT TO TAKE HIM TO PRIVATE VEHICLE WITH PERSONAL BELONGINGS.
== END 2020-08-18 14:10 | disposition home or self-care (01) | DRG 343 ==
LOC: D.MS 20:35
PROVIDERS: Family Medicine; Surgery; ADMIT Family Medicine; ATTEND Family Medicine
PROC: 0DTJ4ZZ Resection of Appendix, Percutaneous Endoscopic Approach (ICD-10-PCS; principal; 2020-08-17 18:26)
DX: K35.30 Acute appendicitis with localized peritonitis, without perforation or gangrene (principal); E11.9 Type 2 diabetes mellitus without complications; I25.10 Atherosclerotic heart disease of native coronary artery without angina pectoris; I10 Essential (primary) hypertension; E78.5 Hyperlipidemia, unspecified; E03.9 Hypothyroidism, unspecified; G47.33 Obstructive sleep apnea (adult) (pediatric); Z95.5 Presence of coronary angioplasty implant and graft